=== PATIENT | female | born 2000 | race Caucasian/White ===

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

== ENCOUNTER 2020-03-12 15:55 | Outpatient (CLI) | payer OTHER, SELFPAY ==
--- NOTE | ~2020-03-12 | CT_ITS ---
EXAMINATION: CT brain wo con DATE: 03/12/2020 16:16 INDICATION: Chronic headache. TECHNIQUE: Computed tomography (CT) of the head was performed without intravenous contrast. The mA wa s adjusted according to patient size. Iterative reconstruction technique was employed. The dose-lengt h product was 605.33 mGy-cm. COMPARISON: None FINDINGS: There is no intracranial hemorrhage, acute infarction, or abnormal intracranial mass lesion . The ventricles are normal in size. The orbits are normal. The paranasal sinuses are clear. The mast oid air cells are normal. IMPRESSION: 1. Normal brain. Reviewed, dictated and finalized at location A. [employer] IMPRESSION: 1. Normal brain.
== END 2020-03-12 15:56 | disposition home or self-care (01) ==
LOC: ANHIMG 15:58
PROVIDERS: PCP Physician Assistant; Visit Provider Psychiatry & Neurology Neurology
DX: R51.9 Headache, unspecified (principal)
CPT/HCPCS: 70450

== ENCOUNTER 2020-03-30 19:29 | Emergency (ER) | payer OTHER, SELFPAY ==
--- NOTE | 2020-03-30 19:31 | ED.DIZZY ---
HPI - Dizziness General Chief Complaint: Nausea/Vomiting/Diarrhea Stated Complaint: dizzy and getting sick since yesterday Time Seen by Provider: 03/30/20 19:31 Source: patient Mode of arrival: ambulatory Limitations: no limitations History of Present Illness HPI Narrative: Patient is a 19-year-old female who presents for evaluation of nausea and vomiting. Patient states that she and her boyfriend got into an argument yesterday, she became nauseous following this and began to have episodes of vomiting. Nonbloody, nonbilious emesis. She denies any fever, cough, chest pain, abdominal pain or diarrhea. Patient states she has not been able to tolerate much oral intake today. She did touch base with her primary care physician's office who referred her to this facility. She denies any rhinorrhea, congestion or sore throat. No dysuria or hematuria. She states she had a negative test 2 days ago. She reports some mild dizziness but no difficulty with walking, vision changes, headache or neck pain. No dizziness currently. Patient denies any recent food indiscretions. No recent sick contacts. Related Data Home Medications Medication Instructions Recorded Confirmed escitalopram oxalate mg 09/20/19 mirtazapine mg 09/20/19 trazodone 09/20/19 09/20/19 Allergies Allergy/AdvReac Type Severity Reaction Status Date / Time No Known Allergies Allergy Verified 09/20/19 19:09 Review of Systems Review of Systems: Narrative: CONSTITUTIONAL: Denies fever, chills, or sweats. EYES: Denies visual changes, redness, or discharge. ENT: Denies rhinorrhea, congestion, sore throat, or otalgia. CARDIOVASCULAR: Denies chest pain, palpitations, or edema. RESPIRATORY: Denies cough or dyspnea. GASTROINTESTINAL: Denies abdominal pain, reports nausea and vomiting, denies diarrhea GENITOURINARY: Mild frequency, no dysuria or hematuria. SKIN: Denies rash or itching. MUSCULOSKELETAL: Denies back pain, joint pain, or myalgia. NEUROLOGIC: Denies headache, numbness, or weakness. Reports dizziness that is intermittent, none currently PSYCHIATRIC: Reports mild history of anxiety and depression PMFSH Past Medical History Medical History Anxiety Migraines Uses control Surgical History Surgical History No significant past surgical history Family History Family History (Updated 11/22/19 @ 15:02 by Joseph Dunlap RN) Father Colon cancer Diabetes mellitus High cholesterol Crohn's colitis Gum disease Grandparent History of blood clots Diabetes mellitus High cholesterol Heart disease Congenital disease of nervous system Hypertension Gum disease Grandparent History of blood clots High cholesterol Heart disease FH: seizures Hypertension Other Congenital disease of nervous system Gum disease Social History Social History Smoking status: Former smoker Second hand tobacco smoke exposure: No Substance use: never Gender identity (if verbalized by the patient): Female Spiritual care concerns: No Exam Narrative: Exam Narrative: GENERAL: Awake, alert, conversant HEAD: Normocephalic, atraumatic. EYES: PERRLA and EOMI. ENT: Nares clear, no rhinorrhea or epistaxis. Mucous membranes moist. NECK: Supple. CHEST: No respiratory distress, breathing even and non labored HEART: Regular rate, sinus rhythm ABDOMEN:Non distended, non tender in all 4 quadrants, no rebound, nonrigid, no guarding EXTREMITIES: Normal range of motion. No edema. SKIN: Warm, dry, no rash. NEURO:No focal deficits. Alert and oriented x3. Pt ambulatory with a narrow based, steady gait, no ataxia. Strength 5 out of 5 in bilateral upper and lower extremities. Course Vital Signs Vital signs: Vital Signs Pulse Rate 99 03/30/20 19:45 Respiratory Rate 20 03/30/20 19:45 Blood Pressure 144/78 H 03/30/20 19:45 Pulse Oxim
[2020-03-30 19:45] VITALS: BP 144/78; PULSE 99; RESP 20; O2SAT 96
[2020-03-30 19:53] LABS: Basophils Percent Auto 0.2 % (0.2-1.2); Eosinophils Absolute Auto 0.1 K/mm3 (0-0.3); Eosinophils Percent Auto 1.1 % (0-4.4); Hematocrit 44.6 % (37.0-47.0); Hemoglobin 14.2 g/dL (12.0-15.0); Immature Granulocyte Absolute 0.03 K/mm3 (0.00-0.031); Immature Granulocyte Percent A 0.3 % (0-0.5); Lymphocytes Percent Auto 18.3 % (18.3-44.2); Mean Corpuscular HGB Conc 31.8 g/dl (32-36); Mean Corpuscular Hemoglobin 26.2 pg (26-34); Mean Corpuscular Volume 82.3 fl (80-100); Mean Platelet Volume 9.9 fl (7.4-10.4); Monocytes Absolute Auto 0.7 K/mm3 (0.1-0.6); Monocytes Percent Auto 5.9 % (2.6-8.5); Neutrophils Absolute Auto 8.5 K/mm3 (1.3-6.7); Neutrophils Percent Auto 74.2 % (45.5-73.1); Platelet Count Result 343 k/mm3 (150-375); Red Blood Count 5.42 M/mm3 (4.2-5.4); Red Cell Distribution Width 14.8 % (11.5-14.5); White Blood Count 11.5 K/mm3 (4.5-10.0)
[2020-03-30] MEDS: SODIUM CHLORIDE 0.9% IV 1,000 ML 999 ML IV CONT (20:04)
[2020-03-30 20:07] LABS: Alanine Aminotransferase 15 U/L (4-35); Albumin Level 4.7 g/dL (3.7-5.6); Alkaline Phosphatase 109 U/L (45-116); Anion Gap 11 mmol/L (8-16); Aspartate Amino Transferase 30 U/L (14-36); Bilirubin,Total 0.6 mg/dL (0.2-1.3); Blood Urea Nitrogen 11 mg/dL (8-21); Calcium 9.5 mg/dL (8.9-10.7); Carbon Dioxide 22 mmol/L (22-30); Chloride 104 mmol/L (98-107); Estimated CRCL calculation 143 ml/min; Estimated Glomerular Filt Rate > 60; Glucose 94 mg/dL (65-105); Lipase 19 U/L (23-300); Potassium 4.3 mmol/L (3.4-5.0); Sodium 137 mmol/L (134-143)
[2020-03-30] MEDS: FAMOTIDINE 20 MG/2 ML VIAL IV PUSH (20:07)
[2020-03-30] MEDS: ONDANSETRON INJ 4 MG/2 ML VIAL IV PUSH (20:07)
[2020-03-30 20:19] LABS: Add Urine Microscopic? YES; Appearance Urine Cloudy (Clear); Bacteria Urine 1+ /hpf; Bilirubin Urine Negative (Negative); Blood Urine Negative (Negative); Color Urine Yellow (Yellow); Glucose Urine UA Negative (Negative); Ketones Urine Negative (Negative); Leukocyte Esterase Ur 1+ LEU/UL (Negative); Mucus Urine Heavy /lpf; Nitrate Urine Positive (Negative); Protein Urine 1+ mg/dL (Negative); RBC Urine 0-2 /hpf (0-2); Squamous Epithelial Cell Urine Many /hpf (Few); Urobilinogen Urine Negative mg/dL (<2.0)
[2020-03-30 20:22] LABS: Specific Grav Ur 1.032 (1.001-1.035)
--- NOTE | 2020-03-30 20:41 | ECG_ITS ---
Measurements Intervals [place] Rate: 75 P: 9 NE: 131 QRS: 5 QRSD: 116 T: 9 QT: 388 QTc: 435 Interpretive Statements SINUS RHYTHM BORDERLINE T WAVE ABNORMALITY- INFERIOR LEADS BORDERLINE ECG Electronically Signed On 03-31-2020 7:28:37 BACK HOE MACHINE OPERATOR by Tejas Ocasio D.O.
[2020-03-30 20:55] VITALS: BP 138/72; PULSE 88; RESP 16; O2SAT 99
--- NOTE | 2020-04-22 13:58 | PC.NURSE ---
LATE ENTRY This note is being entered to document information to the patient's record. The following information was omitted on [03/30/20], by [Dorothea Renee]. IV Fluid NS stop time 2099.
--- NOTE | 2020-04-23 10:51 | PC.NURSE ---
LATE ENTRY This note is being entered to document information to the patient's record. The following information was omitted on [03/30/20], by [Dorothea Renee]. NS stop time is 2100
== END 2020-03-30 20:57 | disposition home or self-care (01) ==
PROVIDERS: Emergency Provider Emergency Medicine; PCP Physician Assistant
DX: N30.00 Acute cystitis without hematuria (principal); E86.0 Dehydration; F41.9 Anxiety disorder, unspecified; Z87.891 Personal history of nicotine dependence
CPT/HCPCS: 36415; 80053; 81001; 81025; 83690; 85025; 87077; 87086; 87088; 87186; 93005; 96361; 96374; 96375; 99284; J0131; J2405; J7030

== ENCOUNTER 2020-04-07 10:09 | Outpatient (CLI) | payer OTHER, SELFPAY ==
--- NOTE | 2020-04-07 12:00 | NEURO_ITS ---
Impression: # Complains of pain and numbness of legs. # Normal nerve conduction study including F-waves. # Normal needle/EMG exam. # Clinical correlation recommended; problem could be related to small fiber neuropathy. Nerve Conduction Studies Anti Sensory Summary Table Stim Site NR Peak (ms) P-T Amp (?V) Site1 Site2 Delta-P (ms) Dist (cm) Don (m/s) Left Sup Fibular Anti Sensory (Ant Lat Mall) 14 cm 2.9 16.2 14 cm Ant Lat Mall 2.9 16.0 55 Right Sup Fibular Anti Sensory (Ant Lat Mall) 14 cm 3.0 5.0 14 cm Ant Lat Mall 3.0 16.0 53 Left Sural Anti Sensory (Lat Mall) Calf 3.9 11.6 Calf Lat Mall 3.9 16.0 41 Right Sural Anti Sensory (Lat Mall) Calf 3.6 11.2 Calf Lat Mall 3.6 16.0 44 Motor Summary Table Stim Site NR Onset (ms) O-P Amp (mV) Site1 Site2 Delta-0 (ms) Dist (cm) Don (m/s) Left Peroneal Motor (Vastus Med) Ankle 4.2 0.8 Popit Ankle 7.0 39.0 56 Popit 11.2 1.1 Right Peroneal Motor (Vastus Med) Ankle 3.8 1.6 Popit Ankle 6.7 37.0 55 Popit 10.5 1.5 Left Tibial Motor (Abd Atkins Brev) Ankle 3.7 6.6 Knee Ankle 7.7 40.0 52 Knee 11.4 4.1 Right Tibial Motor (Abd Atkins Brev) Ankle 3.9 9.2 Knee Ankle 8.5 41.0 48 Knee 12.4 2.9 F Wave Studies NR F-Lat (ms) L-R F-Lat (ms) Left Peroneal (Mrkrs) (EDB) 49.47 0.70 Right Peroneal (Mrkrs) (EDB) 50.18 0.70 Left Tibial (Mrkrs) (Abd Hallucis) 49.42 0.28 Right Tibial (Mrkrs) (Abd Hallucis) 49.70 0.28 EMG Side Muscle Nerve Root Ins Act Fibs Amp Dur Recrt Comment Right AntTibialis Dp Br Fibular L4-5 Nml Nml Nml Nml Nml Right Gastroc Tibial S1-2 Nml Nml Nml Nml Nml Right Fibularis Long Sup Br Fibular L5-S1 Nml Nml Nml Nml Nml Right Flex Dig Long Tibial L5-S2 Nml Nml Nml Nml Nml Right Ext Dig Brev Dp Br Fibular L5, S1 Nml Nml Nml Nml Nml Left AntTibialis Dp Br Fibular L4-5 Nml Nml Nml Nml Nml Left Gastroc Tibial S1-2 Nml Nml Nml Nml Nml Left Fibularis Long Sup Br Fibular L5-S1 Nml Nml Nml Nml Nml Left Flex Dig Long Tibial L5-S2 Nml Nml Nml Nml Nml Left Ext Dig Brev Dp Br Fibular L5, S1 Nml Nml Nml Nml Nml MTDD
== END 2020-04-07 10:10 | disposition home or self-care (01) ==
LOC: ANHNEURO 10:10
PROVIDERS: PCP Physician Assistant; Visit Provider Psychiatry & Neurology Neurology
DX: G62.9 Polyneuropathy, unspecified (principal)
CPT/HCPCS: 95886; 95910

== ENCOUNTER 2020-04-10 01:20 | Outpatient (CLI) | payer OTHER, SELFPAY ==
[2020-04-10 20:08] LABS: SARS-CoV-2 RNA PCR Negative
== END 2020-04-10 01:21 | disposition home or self-care (01) ==
LOC: ANHCOVIDDT 01:20
PROVIDERS: PCP Physician Assistant; Visit Provider Plastic Surgery
DX: Z01.812 Encounter for preprocedural laboratory examination (principal); Z20.822 Contact with and (suspected) exposure to COVID-19
CPT/HCPCS: C9803; U0003

== ENCOUNTER 2020-04-14 00:30 | Day surgery (SDC) | payer OTHER, SELFPAY ==
[2020-04-05 16:58] VITALS: BMI 36.6
[2020-04-14 06:05] VITALS: BP 121/69; PULSE 101; RESP 20; TEMP 36.5; O2SAT 100
[2020-04-14] MEDS: LACTATED RINGERS 1,000 ML 30 ML IV CONT (06:26)
--- NOTE | 2020-04-14 07:06 | WPDANESEPPF ---
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 Patient Data Age: 19 Gender: F Height: 5 ft 5 in Weight: 98.4 kg Last Vital Signs Temp 97.7 F 04/14/20 06:05 Pulse 101 H 04/14/20 06:05 Resp 20 04/14/20 06:05 BP 121/69 04/14/20 06:05 Pulse Ox 100 04/14/20 06:05 Allergies Allergy/AdvReac Type Severity Reaction Status Date / Time No Known Allergies Allergy Verified 04/14/20 06:46 Home Medications Medication Instructions Recorded Confirmed Type escitalopram oxalate 20 mg PO HS 09/20/19 04/14/20 History mirtazapine 15 mg PO HS 09/20/19 04/14/20 History gabapentin 300 mg PO TID 04/05/20 04/14/20 History levonorgestrel-ethinyl estrad 0.1 - 20 tablet PO DAILY 04/05/20 04/14/20 History [Aviane] naproxen 500 mg PO DAILY 04/05/20 04/05/20 History Laboratory Tests 04/14/20 06:25 Beta HCG, Quant Pending Patient hx anesthesia problems: none Family hx anesthesia problems: none PMFSH Past Medical History Medical History Anxiety Bipolar 1 disorder Migraines Uses control Surgical History Surgical History No significant past surgical history Family History Family History (Updated 02/28/19 @ 15:02 by Joseph Dunlap RN) Father Colon cancer Diabetes mellitus High cholesterol Crohn's colitis Gum disease Grandparent History of blood clots Diabetes mellitus High cholesterol Heart disease Congenital disease of nervous system Hypertension Gum disease Grandparent History of blood clots High cholesterol Heart disease FH: seizures Hypertension Other Congenital disease of nervous system Gum disease Social History Social History Years smoked: 3 Smoking status: Light tobacco smoker Second hand tobacco smoke exposure: No Additional smoking assessment comments: 1 CIGARETTE/WEEK Substance use: never Gender identity (if verbalized by the patient): Female Spiritual care concerns: No Anes - Eval Final PreProcedure Day of Procedure 04/14/20 07:06 Patient weight: obese Heart: regular rate and rhythm Lungs: clear to auscultation Airway: Mallampati scale class II Neurological: alert and oriented Last oral intake: >/= 8 hours ASA classification: II Emergent: no Anesthetic plan: proceed Anesthesia type and monitoring: general GIVS and standard monitoring Informed Consent: The patient's anesthetic plan and its attendant risks and benefits were discussed with the patient/family/POA. Questions were solicited and answers provided to the satisfaction of the patient/family/POA.
[2020-04-14 07:08] LABS: Beta HCG Quantitative < 2.39 mIU/ML
--- NOTE | 2020-04-14 07:11 | WPDHPUPDATE1 ---
History and Physical Update Update Date/Time: 04/14/20 07:11 History and Physical has been reviewed, including an updated exam of the patient. There are NO changes in the patient's condition. Risks, benefits, and alternatives have been discussed and questions answered. Patient agrees to proceed with procedure.
[2020-04-14] MEDS: BACITRACIN OINTMENT 15 GM TUBE 1 APPLIC TOPICAL (07:54)
[2020-04-14] MEDS: LIDO 1%/EPINEPHRINE 1:100,000 50 ML VIAL INFILTRATE (07:55)
[2020-04-14 08:03] VITALS: BP 141/99; PULSE 99; RESP 14; O2SAT 97
--- NOTE | 2020-04-14 08:03 | PM.OP ---
Procedure Note - Brief Procedure Note - Brief Date of procedure: 04/14/20 Pre-op diagnosis: recurrent right volar wrist ganglion cyst Post-op diagnosis: same Procedure performed: Excision of right volar wrist ganglion cyst. Anesthesia: MAC Surgeon: Bryan Rivas MD Estimated blood loss (mL): 0 Tourniquet time (min): 10 Drains: No Packing: No Pathology: none sent Complications: No immediate complications Condition: stable Disposition: same day
--- NOTE | 2020-04-14 08:04 | PM.PROC ---
Procedure Note - Detailed Date of procedure: 04/14/20 Pre-op diagnosis: recurrent right volar wrist ganglion cyst Post-op diagnosis: same Procedure performed: Excision of recurrent right volar wrist ganglion cyst. Description of procedure: The patient presents with a recurrence right volar wrist ganglion cyst. This again remains most prominent directly over the flexor carpi radialis at the distal palmar crease. We had discussed a wider area of excision thinking that the mass did track more radially and she was prepared for that type excision. The site was marked in preop. She was taken to the operating room placed supine on the operating table. A time-out was held and confirmed. She was given IV sedation. The extremity was prepped and draped in usual fashion. The site was carefully examined and marked for excision. We were not able to detect a more radial or proximal volar wrist ganglion cyst today. The site directly over the flexor carpi radialis was quite prominent and firm. The diagonal incision was made 1st after inflation of the tourniquet to 250 mmHg and placement of 1% lidocaine with epinephrine. Dissection was carried into the subcutaneous tissue. No fluctuant ganglion was identified there was a very firm silvery mass on the flexor carpi radialis sheath and this was carefully dissected it did penetrate into the radiocarpal joint and we followed that as far as possible removing it at its base. This small opening through the deep fascia was oversewn with 4-0 Monocryl suture. The wound was then closed with subcutaneous 4-0 Monocryl. An intradermal 4-0 Monocryl to close the skin. Tolerated well the tourniquet believe she is discharged from the operating room stable condition she will have a prescription for some hydrocodone Surgeon: Bryan Rivas MD
[2020-04-14 08:30] VITALS: BP 108/55; PULSE 92; RESP 20
[2020-04-14 09:00] VITALS: BP 92/60; PULSE 74; RESP 20
== END 2020-04-14 09:34 | disposition home or self-care (01) ==
PROVIDERS: Anesthesiology; PCP Physician Assistant; Visit Provider Plastic Surgery
PROC: (CPT 25112; principal; 2020-04-14 07:30)
DX: M67.431 Ganglion, right wrist (principal); F31.9 Bipolar disorder, unspecified; F41.9 Anxiety disorder, unspecified; Z72.0 Tobacco use
CPT/HCPCS: 25112; 36415; 84702; A9270; J2250; J2405; J2704; J3010; J7120

== ENCOUNTER 2020-10-31 17:21 | Emergency (ER) | payer OTHER, SELFPAY ==
--- NOTE | ~2020-10-31 | XR_ITS ---
EXAMINATION: XR chest 1V portable EXAM DATE: 10/31/2020 20:18 INDICATION: Cough. TECHNIQUE: Portable AP frontal chest x-ray was obtained. Comparison is made to prior examination from 06/25/2019. FINDINGS: There is retrocardiac airspace disease, probably pneumonia. There is no pneumothorax [place]. There are no pleural effusions. There are no osseous abnormalities identified. IMPRESSION: Retrocardiac airspace disease probably pneumonia. Reviewed, dictated and finalized at location A.
[2020-10-31 17:41] VITALS: BP 121/69; PULSE 97; RESP 20; TEMP 36.5; O2SAT 100
--- NOTE | 2020-10-31 20:53 | ED.GENADULT ---
HPI - General Adult General Chief complaint: Unspecified Stated complaint: GETTING SICK, VOICE IS GOING Time Seen by Provider: 10/31/20 19:58 Source: patient Mode of arrival: ambulatory Limitations: no limitations History of Present Illness HPI narrative: This is a 20-year-old female that presents to the emergency department for cold symptoms x3 days. Reports congestion, headache, and cough. Reports several coworkers have been diagnosed with Covid. She did not receive the Covid vaccination. Denies fever, chest pain, shortness of breath. Related Data Home Medications Medication Instructions Recorded Confirmed escitalopram oxalate 20 mg PO HS 09/20/19 04/14/20 mirtazapine 15 mg PO HS 09/20/19 04/14/20 gabapentin 300 mg PO TID 04/05/20 04/14/20 levonorgestrel-ethinyl estrad 0.1 - 20 tablet PO DAILY 04/05/20 04/14/20 [Aviane] naproxen 500 mg PO DAILY 04/05/20 04/05/20 Allergies Allergy/AdvReac Type Severity Reaction Status Date / Time No Known Allergies Allergy Verified 04/14/20 06:46 Review of Systems Review of Systems: Narrative: CONSTITUTIONAL: Denies fever ENT: Reports rhinorrhea, congestion, sore throat CARDIOVASCULAR: Denies chest pain RESPIRATORY: Reports cough. Denies dyspnea. All systems reviewed & are unremarkable except as noted in HPI and below PMFSH Past Medical History Medical History Anxiety Bipolar 1 disorder Migraines Uses control Surgical History Surgical History No significant past surgical history Family History Family History (Updated 02/28/19 @ 15:02 by Joseph Dunlap RN) Father Colon cancer Diabetes mellitus High cholesterol Crohn's colitis Gum disease Grandparent History of blood clots Diabetes mellitus High cholesterol Heart disease Congenital disease of nervous system Hypertension Gum disease Grandparent History of blood clots High cholesterol Heart disease FH: seizures Hypertension Other Congenital disease of nervous system Gum disease Social History Social History Years smoked: 3 Smoking status: Light tobacco smoker Second hand tobacco smoke exposure: No Additional smoking assessment comments: 1 CIGARETTE/WEEK Substance use: never Gender identity (if verbalized by the patient): Female Spiritual care concerns: No Exam Narrative: Exam Narrative: GENERAL: Well-appearing, well-nourished, and in no acute distress. HEAD: Normocephalic, atraumatic. EYES: EOMI. ENT: Nares clear, no rhinorrhea or epistaxis. Mucous membranes moist. Oropharynx without tonsillar hypertrophy exudate or other lesions. Bilateral TMs pearly [place] non-bulging NECK: Supple. No adenopathy or masses. CHEST: Clear to auscultation. No respiratory distress. No wheezes rales or rhonchi HEART: Regular rate and rhythm. No murmur heard. Normal peripheral pulses. EXTREMITIES: Normal range of motion. No edema. SKIN: Warm, dry, no rash. NEURO: No focal deficits. Alert and oriented x3. PSYCH: Normal mood and affect Course Vital Signs Vital signs: Vital Signs Temperature 97.7 F 10/31/20 17:41 Pulse Rate 97 10/31/20 17:41 Respiratory Rate 20 10/31/20 17:41 Blood Pressure 121/69 10/31/20 17:41 Pulse Oximetry 100 10/31/20 17:41 Temperature 97.7 F 10/31/20 17:41 Pulse Rate 97 10/31/20 17:41 Respiratory Rate 20 10/31/20 17:41 Blood Pressure 121/69 10/31/20 17:41 Pulse Oximetry 100 10/31/20 17:41 Medical Decision Making MDM Narrative Medical decision making narrative: Patient presents to the ER for cold symptoms present x3 days. Reports several coworkers that had been diagnosed with coronavirus. She is afebrile and nontoxic-appearing. Vitals are stable. Oxygen saturation has remained normal on room air. Chest x-ray does show retrocardiac airspace disease, probably pneumonia. SARS-CoV-2 was sent. Enrique
[2020-10-31 21:32] VITALS: BP 110/72; PULSE 91; RESP 18; TEMP 36.6; O2SAT 99
[2020-11-02 15:38] LABS: SARS-CoV-2 RNA PCR Positive
== END 2020-10-31 21:32 | disposition home or self-care (01) ==
PROVIDERS: Physician Assistant; Emergency Provider Emergency Medicine; PCP Physician Assistant
DX: U07.1 COVID-19 (principal); J12.82 Pneumonia due to coronavirus disease 2019; F41.9 Anxiety disorder, unspecified; F31.9 Bipolar disorder, unspecified; F17.210 Nicotine dependence, cigarettes, uncomplicated
CPT/HCPCS: 71045; 99283; C9803; U0003; U0005

== ENCOUNTER 2021-02-27 02:36 | Emergency (ER) | payer OTHER, SELFPAY ==
--- NOTE | ~2021-02-27 | US_ITS ---
EXAMINATION: US OB <=14 wk fetus w TV EXAM DATE: 02/27/2021 05:04 INDICATION: Pelvic pain, . Clinical concern for ectopic. 1st trimester. TECHNIQUE: Pelvic obstetrical transabdominal and transvaginal sonogram was performed by a technologcee chapman. There are multiple grayscale and Doppler images available for interpretation. There are no boaz ier studies of this gestation for comparison. FINDINGS: Uterus measures 8.0 x 6.6 x 5.3 cm. There is intrauterine gestation sac. pole with heart rate confirmed at 115 beats per minute. The 7 mm crown-rump length corresponds to estimated ge stational age of 6 weeks 4 days. Yolk sac is identified. There is a small subchorionic hemorrhage measuring 13 mm diameter by 6 mm in thickness. There is morphologically normal right ovary. The lef t ovary not identified. IMPRESSION: Early live intrauterine with small subchorionic metallic. Reviewed, dictated and finalized at location A. [employer] IMPRESSION: Early live intrauterine with small subchorionic metallic .
[2021-02-27 02:39] VITALS: BP 121/69; PULSE 98; RESP 17; TEMP 36.1; O2SAT 100
[2021-02-27] MEDS: SODIUM CHLORIDE 0.9% IV 500 ML 999 ML IV CONT (04:04)
[2021-02-27 04:12] LABS: Basophils Percent Auto 0.2 % (0.2-1.2); Eosinophils Absolute Auto 0.3 K/mm3 (0-0.3); Eosinophils Percent Auto 2.4 % (0-4.4); Hematocrit 41.9 % (37.0-47.0); Hemoglobin 13.7 g/dL (12.0-15.0); Immature Granulocyte Absolute 0.06 K/mm3 (0.00-0.031); Immature Granulocyte Percent A 0.5 % (0-0.5); Lymphocytes Absolute Auto 2.29 K/mm3 (0.9-3.2); Lymphocytes Percent Auto 17.8 % (18.3-44.2); Mean Corpuscular HGB Conc 32.7 g/dl (32-36); Mean Corpuscular Hemoglobin 28.8 pg (26-34); Mean Platelet Volume 9.4 fl (7.4-10.4); Monocytes Absolute Auto 0.8 K/mm3 (0.1-0.6); Monocytes Percent Auto 5.9 % (2.6-8.5); Neutrophils Absolute Auto 9.4 K/mm3 (1.3-6.7); Neutrophils Percent Auto 73.2 % (45.5-73.1); Platelet Count Result 316 k/mm3 (150-375); Red Blood Count 4.76 M/mm3 (4.2-5.4); Red Cell Distribution Width 13.4 % (11.5-14.5); White Blood Count 12.8 K/mm3 (4.5-10.0)
[2021-02-27 04:21] LABS: Alanine Aminotransferase 12 U/L (4-35); Albumin Level 4.6 g/dL (3.5-5.1); Alkaline Phosphatase 85 U/L (38-126); Anion Gap 8 mmol/L (8-16); Aspartate Amino Transferase 20 U/L (14-36); Bilirubin,Total 0.2 mg/dL (0.2-1.3); Blood Urea Nitrogen 10 mg/dL (7-17); Calcium 9.7 mg/dL (8.4-10.2); Carbon Dioxide 28 mmol/L (22-30); Chloride 101 mmol/L (98-107); Estimated Glomerular Filt Rate > 60; Glucose 101 mg/dL (65-110); Potassium 3.9 mmol/L (3.4-5.0); Sodium 137 mmol/L (137-145)
[2021-02-27 06:07] VITALS: BP 122/67; PULSE 97; RESP 16; O2SAT 99
[2021-02-27 06:12] LABS: Add Urine Microscopic? NO; Appearance Urine Clear (Clear); Bilirubin Urine Negative (Negative); Blood Urine Negative (Negative); Color Urine Yellow (Yellow); Glucose Urine UA Negative (Negative); Ketones Urine Negative (Negative); Leukocyte Esterase Ur Negative LEU/UL (Negative); Nitrate Urine Negative (Negative); Protein Urine Negative (Negative); Specific Grav Ur 1.023 (1.001-1.035); Urobilinogen Urine Negative mg/dL (<2.0)
--- NOTE | 2021-02-27 07:11 | ED.FEMALEGU ---
HPI - Female Genitourinary General Chief complaint: Vaginal Bleeding <Brday Orourke MD - Last Filed: 02/27/21 07:16> Stated complaint: vaginal bleeding/ 7 weeks <Brady Orourke MD - Last Filed: 02/27/21 07:16> Time Seen by Provider: 02/27/21 04:20 <Brady Orourke MD - Last Filed: 02/27/21 07:16> Source: patient <Brady Orourke MD - Last Filed: 02/27/21 07:16> History of Present Illness HPI Narrative: 1-year-old female presents with vaginal bleeding. She is G8, P1 approximately 7 weeks by LMP. Reports she started bleeding last night with it was associated with lower abdominal cramping. She reports the bleeding is scant she has a history of early miscarriages was concerned so came to the ER for evaluation. Denies any trauma, nausea, vomiting, urinary symptoms. <Brady Orourke MD - Last Filed: 02/27/21 07:16> Related Data Home medications: Home Medications Medication Instructions Recorded Confirmed escitalopram oxalate 20 mg PO HS 09/20/19 04/14/20 mirtazapine 15 mg PO HS 09/20/19 04/14/20 gabapentin 300 mg PO TID 04/05/20 04/14/20 levonorgestrel-ethinyl estrad 0.1 - 20 tablet PO DAILY 04/05/20 04/14/20 [Aviane] naproxen 500 mg PO DAILY 04/05/20 04/05/20 <Brady Orourke MD - Last Filed: 02/27/21 07:16> Allergies/Adverse reactions: Allergies Allergy/AdvReac Type Severity Reaction Status Date / Time No Known Allergies Allergy Verified 02/27/21 02:41 <Brady Orourke MD - Last Filed: 02/27/21 07:16> Review of Systems Review of Systems: CONSTITUTIONAL: Denies fever, chills, or sweats. EYES: Denies visual changes, redness, or discharge. ENT: Denies rhinorrhea, congestion, sore throat, or otalgia. CARDIOVASCULAR: Denies chest pain, palpitations, or edema. RESPIRATORY: Denies cough or dyspnea. GASTROINTESTINAL: Denies abdominal pain, nausea, vomiting, or diarrhea. GENITOURINARY: Denies dysuria or hematuria. SKIN: Denies rash or itching. MUSCULOSKELETAL: Denies back pain, joint pain, or myalgia. NEUROLOGIC: Denies headache, numbness, dizziness, or weakness. PSYCHIATRIC: Denies anxiety or depression. <Brady Orourke MD - Last Filed: 02/27/21 07:16> All systems reviewed & are unremarkable except as noted in HPI and below <Brady Orourke MD - Last Filed: 02/27/21 07:16> PMFSH Past Medical History Medical History: Medical History Anxiety Bipolar 1 disorder Migraines Uses control <Brady Orourke MD - Last Filed: 02/27/21 07:16> Surgical History Surgical History: Surgical History No significant past surgical history <Brady Orourke MD - Last Filed: 02/27/21 07:16> Family History Family History: Family History Father Colon cancer Diabetes mellitus High cholesterol Crohn's colitis Gum disease Grandparent History of blood clots Diabetes mellitus High cholesterol Heart disease Congenital disease of nervous system Hypertension Gum disease Grandparent History of blood clots High cholesterol Heart disease FH: seizures Hypertension Other Congenital disease of nervous system Gum disease <Brady Orourke MD - Last Filed: 02/27/21 07:16> Social History Social History: Social History Years smoked: 3 Smoking status: Light tobacco smoker Second hand tobacco smoke exposure: No Additional smoking assessment comments: 1 CIGARETTE/WEEK Substance use: never Gender identity (if verbalized by the patient): Female Spiritual care concerns: No <Brady Orourke MD - Last Filed: 02/27/21 07:16> Exam Narrative: GENERAL: Well-appearing, well-nourished, and in no acute distress. HEAD: Normocephalic, atraumatic. EYES: PERRLA and EOMI. ENT: Nares clear, no rhinorrhea or epistaxis. Mucous membranes moist.
== END 2021-02-27 08:30 | disposition home or self-care (01) ==
PROVIDERS: Emergency Medicine; Emergency Provider Emergency Medicine; PCP Physician Assistant
DX: O20.0 Threatened abortion (principal); O99.341 Other mental disorders complicating pregnancy, first trimester; F41.9 Anxiety disorder, unspecified; F31.9 Bipolar disorder, unspecified; O99.331 Smoking (tobacco) complicating pregnancy, first trimester; F17.210 Nicotine dependence, cigarettes, uncomplicated; Z3A.01 Less than 8 weeks gestation of pregnancy
CPT/HCPCS: 36415; 76801; 76817; 80053; 81003; 84702; 85025; 85461; 96360; 99284; J7040

== ENCOUNTER 2021-04-02 20:41 | Emergency (ER) | payer OTHER, SELFPAY ==
[2021-04-02 21:03] VITALS: BP 137/70; PULSE 97; RESP 15; TEMP 36.3; O2SAT 100
--- NOTE | 2021-04-02 21:40 | ED.WOUNDLAC ---
HPI - Wound/Laceration General Chief Complaint: Wound/Laceration Stated Complaint: left thumb lac Time Seen by Provider: 04/02/21 21:13 History of Present Illness HPI narrative: Patient is a 20-year-old female who presents ER with thumb laceration. Occurred just prior to arrival. She was opening a can when she cut her left thumb. 1.5 cm. Superficial. Tetanus up-to-date. No numbness or tingling. Has throbbing discomfort. Related Data Home Medications Medication Instructions Recorded Confirmed escitalopram oxalate 20 mg PO HS 09/20/19 04/14/20 mirtazapine 15 mg PO HS 09/20/19 04/14/20 gabapentin 300 mg PO TID 04/05/20 04/14/20 levonorgestrel-ethinyl estrad 0.1 - 20 tablet PO DAILY 04/05/20 04/14/20 [Aviane] naproxen 500 mg PO DAILY 04/05/20 04/05/20 Allergies Allergy/AdvReac Type Severity Reaction Status Date / Time No Known Allergies Allergy Verified 04/02/21 21:07 Review of Systems Integumentary/Breasts: Skin/Breast: Denies pruritus and Denies erythema Comments: Skin laceration Neurologic: Denies focal weakness and Denies numbness PMFSH Past Medical History Medical History Anxiety Bipolar 1 disorder Migraines Uses control Surgical History Surgical History No significant past surgical history Family History Family History Father Colon cancer Diabetes mellitus High cholesterol Crohn's colitis Gum disease Grandparent History of blood clots Diabetes mellitus High cholesterol Heart disease Congenital disease of nervous system Hypertension Gum disease Grandparent History of blood clots High cholesterol Heart disease FH: seizures Hypertension Other Congenital disease of nervous system Gum disease Social History Social History Years smoked: 3 Smoking status: Light tobacco smoker Second hand tobacco smoke exposure: No Additional smoking assessment comments: 1 CIGARETTE/WEEK Substance use: never Gender identity (if verbalized by the patient): Female Spiritual care concerns: No Exam Narrative: GENERAL: Well-appearing, well-nourished, and in no acute distress. HEAD: Normocephalic, atraumatic. EXTREMITIES: Normal range of motion. Normal sensation in the left hand. SKIN: Warm, dry. 1.5 cm superficial laceration to the left thumb. Distal phalanx. NEURO: No focal deficits. Alert and oriented x3. PSYCH: Normal mood and affect. Course Vital Signs Vital signs: Vital Signs Temperature 97.3 F L 04/02/21 21:03 Pulse Rate 97 04/02/21 21:03 Respiratory Rate 15 04/02/21 21:03 Blood Pressure 137/70 04/02/21 21:03 Pulse Oximetry 100 04/02/21 21:03 Temperature 97.3 F L 04/02/21 21:03 Pulse Rate 97 04/02/21 21:03 Respiratory Rate 15 04/02/21 21:03 Blood Pressure 137/70 04/02/21 21:03 Pulse Oximetry 100 04/02/21 21:03 Procedures Laceration Laceration 1: Date: 04/02/21 Time: 21:43 Site: other (Thumb) Side (If applicable): left Size (cm): 1.5 Description: linear Depth: simple, single layer Pre-repair: irrigated ====== Skin Level ====== Skin layer closed with: dermabond ====== Subcutaneous Layer ====== ====== Muscle Layer ====== ====== Tendon Layer ====== Discharge Plan Discharge Clinical Impression: Laceration Patient Disposition: Home, Self-Care Condition: Stable Instructions: Laceration (ED), Skin Adhesive Care (ED) Additional Instructions: Return the ER if you have fever over 100.4 ?F, your thumb is red/hot/swollen, you have pus draining from your thumb, or you have additional concerns. Prescriptions: No Action mirtazapine 15 mg tablet 15 mg PO HS RF: 0 escitalopram oxalate 20 mg tablet 20 mg PO HS RF: 0 levonorgestrel-ethinyl
== END 2021-04-02 22:14 | disposition home or self-care (01) ==
PROVIDERS: Emergency Provider Emergency Medicine; PCP Physician Assistant
DX: S61.012A Laceration without foreign body of left thumb without damage to nail, initial encounter (principal); F41.9 Anxiety disorder, unspecified; F31.9 Bipolar disorder, unspecified; F17.210 Nicotine dependence, cigarettes, uncomplicated; W26.8XXA Contact with other sharp object(s), not elsewhere classified, initial encounter
CPT/HCPCS: 12001; 99282

== ENCOUNTER 2021-08-05 14:35 | Observation (INO) | payer OTHER, SELFPAY ==
[2021-08-05] VITALS (10 sets, daily range): BP systolic 97–120; BP diastolic 52–70; PULSE 93–114; BMI 36.6
--- NOTE | 2021-08-05 16:24 | OBADM ---
This patient, Florence Piña, admitted to the OB room OB Post 116 for observation. Patient/family oriented to hospital policies and general routines including ID bracelet, bed and alarms, visiting hours, pain management, procedures, bathroom and other care routines, personal items, smoking policy, room service/diet, and visiting hours. Patient/Family are encouraged to report perceived risks to care and to ask questions if they do not understand what they are told or what they should do.
[2021-08-05 16:34] LABS: Add Urine Microscopic? YES; Appearance Urine Cloudy (Clear); Bacteria Urine Trace /hpf; Bilirubin Urine Negative (Negative); Blood Urine Negative (Negative); Color Urine Yellow (Yellow); Glucose Urine UA Negative (Negative); Ketones Urine Negative (Negative); Leukocyte Esterase Ur 3+ LEU/UL (Negative); Mucus Urine Rare /lpf; Nitrate Urine Negative (Negative); Protein Urine Negative (Negative); RBC Urine 0-2 /hpf (0-2); Specific Grav Ur 1.012 (1.001-1.035); Squamous Epithelial Cell Urine Few /hpf (Few); Urobilinogen Urine Negative mg/dL (<2.0); WBC Urine 0-3 /hpf
--- NOTE | 2021-08-09 13:53 | PM.OBTRLD ---
OB - Triage/Final Diagnosis Visit Information Reason for evaluation: threatened labor Comments/Additional reasons for admission: I have assessed the risk for this patient, Florence Piña, and determined that she would benefit from observation care. Evaluation Laboratory results: Laboratory Tests 08/05/21 16:03 Urine Color Yellow Urine Appearance Cloudy H Urine pH 7.0 Ur Specific [place] 1.012 Urine Protein Negative Urine Glucose (UA) Negative Urine Ketones Negative Ur Blood (Man) Negative Urine Nitrate Negative Urine Bilirubin Negative Urine Urobilinogen Negative Leukocyte Esterase Rfl 3+ H Urine RBC 0-2 Urine WBC 0-3 Ur Squamous Epith Cells Few Urine Bacteria Trace Hyaline Casts 1-2 Urine Mucus Rare
== END 2021-08-05 17:12 | disposition home or self-care (01) ==
PROVIDERS: Admitting Provider Obstetrics & Gynecology Gynecology; PCP Physician Assistant; Visit Provider Obstetrics & Gynecology Gynecology
DX: O47.03 False labor before 37 completed weeks of gestation, third trimester (principal); Z3A.29 29 weeks gestation of pregnancy
CPT/HCPCS: 81001; G0378; G0379

== ENCOUNTER 2021-09-05 18:35 | Observation (INO) | payer OTHER, SELFPAY ==
[2021-09-05 18:53] VITALS: BP 129/67; PULSE 104
[2021-09-05 19:04] VITALS: BMI 40.7
[2021-09-05 19:39] LABS: Appearance Urine Slightly Cloudy (Clear); Bilirubin Urine Negative (Negative); Blood Urine Negative (Negative); Color Urine Yellow (Yellow); Glucose Urine UA Negative (Negative); Ketones Urine Negative (Negative); Leukocyte Esterase Ur Negative LEU/UL (Negative); Nitrate Urine Negative (Negative); Protein Urine Negative (Negative); Specific Grav Ur 1.025 (1.001-1.035); pH Urine 6.5 (5.0-9.0)
[2021-09-05 19:54] LABS: Amorphous Sediment Urine Few; Bacteria Urine Trace /hpf; Mucus Urine Rare /lpf; Squamous Epithelial Cell Urine Occasional /hpf (Few)
[2021-09-05 19:57] LABS: Add Urine Microscopic? YES
--- NOTE | 2021-09-14 10:44 | PM.OBTRLD ---
OB - Triage/Final Diagnosis Visit Information Reason for evaluation: threatened labor Comments/Additional reasons for admission: I have assessed the risk for this patient, Florence Piña, and determined that she would benefit from observation care. Evaluation Laboratory results: Laboratory Tests 09/05/21 19:27 Urine Color Yellow Urine Appearance Slightly cloudy Urine pH 6.5 Ur Specific [place] 1.025 Urine Protein Negative Urine Glucose (UA) Negative Urine Ketones Negative Ur Blood (Man) Negative Urine Nitrate Negative Urine Bilirubin Negative Urine Urobilinogen 1.0 Leukocyte Esterase Rfl Negative Urine RBC 6-10 H Urine WBC 7-9 H Ur Squamous Epith Cells Occasional Amorphous Sediment Few H Urine Bacteria Trace Urine Mucus Rare
== END 2021-09-05 20:20 | disposition home or self-care (01) ==
PROVIDERS: Admitting Provider Obstetrics & Gynecology; PCP Physician Assistant; Visit Provider Obstetrics & Gynecology
DX: O47.03 False labor before 37 completed weeks of gestation, third trimester (principal); Z3A.34 34 weeks gestation of pregnancy
CPT/HCPCS: 81001; 87086; G0378; G0379

== ENCOUNTER 2021-10-12 05:37 | Inpatient (IN) | payer OTHER, SELFPAY ==
[2021-10-12] VITALS (141 sets, daily range): BP systolic 77–134; BP diastolic 41–84; PULSE 51–110; RESP 16–18; TEMP 36.1–36.7; O2SAT 79–100; BMI 39.9
--- NOTE | 2021-10-12 05:37 | LDADM ---
This patient, Florence Piña, was admitted to Labor/Delivery/Recovery 105 on 10/12/21 at 05:37. Plans for labor, pain management and were discussed with patient. Patient/family oriented to hospital policies and general routines including ID bracelet, bed and alarms, visiting hours, pain management, procedures, bathroom and other care routines, personal items, smoking policy, room service/diet and guest tray routines, security routines, and visiting hours. Patient/Family are encouraged to report perceived risks to care and to ask questions if they do not understand what they are told or what they should do. See OBIX for further documentation.
[2021-10-12 06:38] LABS: Basophils Percent Auto 0.3 % (0.2-1.2); Eosinophils Absolute Auto 0.2 K/mm3 (0-0.3); Eosinophils Percent Auto 2.5 % (0-4.4); Hematocrit 38.5 % (37.0-47.0); Hemoglobin 12.2 g/dL (12.0-15.0); Immature Granulocyte Absolute 0.05 K/mm3 (0.00-0.031); Immature Granulocyte Percent A 0.5 % (0-0.5); Lymphocytes Absolute Auto 1.75 K/mm3 (0.9-3.2); Lymphocytes Percent Auto 18.8 % (18.3-44.2); Mean Corpuscular HGB Conc 31.7 g/dl (32-36); Mean Corpuscular Hemoglobin 26.1 pg (26-34); Mean Corpuscular Volume 82.4 fl (80-100); Mean Platelet Volume 9.6 fl (7.4-10.4); Monocytes Absolute Auto 0.7 K/mm3 (0.1-0.6); Monocytes Percent Auto 7.4 % (2.6-8.5); Neutrophils Absolute Auto 6.6 K/mm3 (1.3-6.7); Neutrophils Percent Auto 70.5 % (45.5-73.1); Platelet Count Result 257 k/mm3 (150-375); Red Blood Count 4.67 M/mm3 (4.2-5.4); Red Cell Distribution Width 15.8 % (11.5-14.5); White Blood Count 9.3 K/mm3 (4.5-10.0)
[2021-10-12] MEDS: OXYTOCIN 30 UNITS/NS 500 ML 30 UNITS/500 ML BAG IV CONT (06:39)
[2021-10-12] MEDS: LACTATED RINGERS 1,000 ML 125 ML IV CONT ×3 (06:39→10:10)
--- NOTE | 2021-10-12 07:58 | WPDHPUPDATE1 ---
History and Physical Update Update Date/Time: 10/12/21 07:58 History and Physical has been reviewed, including an updated exam of the patient. There are NO changes in the patient's condition. Risks, benefits, and alternatives have been discussed and questions answered. Patient agrees to proceed with procedure.
--- NOTE | 2021-10-12 07:58 | WPDOBADMIT ---
Obstetrics - Admit Note Admission Note: record reviewed. No pertinent additions to the history and/or any subsequent changes in the physical findings that are not consistent with the expected course of the were found. Additions to the history and/or subsequent changes in the physical findings follow. None.
--- NOTE | 2021-10-12 08:05 | WPDANESEPPF ---
Anes - Initial Pre Proc Eval Date/Time: 10/12/21 08:05 Surgeon: Quincy Fuller MD Pre Op Diagnosis: Induction of Labor Patient Data Age: 21 Gender: F Height: 1.65 m Weight: 109 kg Last Vital Signs Temp 36.4 C 10/12/21 06:42 Pulse 89 10/12/21 08:01 Resp 18 10/12/21 06:42 BP 126/66 10/12/21 08:01 Allergies Allergy/AdvReac Type Severity Reaction Status Date / Time No Known Allergies Allergy Verified 10/04/21 14:19 Home Medications Medication Instructions Recorded Confirmed Type No Home Medications 10/04/21 10/12/21 History Laboratory Tests 10/12/21 10/12/21 10/12/21 06:24 06:24 06:24 WBC 9.3 K/mm3 K/mm3 (4.5-10.0) RBC 4.67 M/mm3 M/mm3 (4.2-5.4) Hgb 12.2 g/dL g/dL (12.0-15.0) Hct 38.5 % % (37.0-47.0) MCV 82.4 fl fl (80-100) MCH 26.1 pg pg (26-34) MCHC 31.7 g/dl L g/dl (32-36) RDW 15.8 % H % (11.5-14.5) Plt Count 257 k/mm3 k/mm3 (150-375) MPV 9.6 fl fl (7.4-10.4) Immature Gran % (Auto) 0.5 % % (0-0.5) Neut % (Auto) 70.5 % % (45.5-73.1) Lymph % (Auto) 18.8 % % (18.3-44.2) [place] % (Auto) 7.4 % % (2.6-8.5) Eos % (Auto) 2.5 % % (0-4.4) Baso % (Auto) 0.3 % % (0.2-1.2) Lymph # (Auto) 1.75 K/mm3 K/mm3 (0.9-3.2) [place] # (Auto) 0.7 K/mm3 H K/mm3 (0.1-0.6) Eos # (Auto) 0.2 K/mm3 K/mm3 (0-0.3) Baso # (Auto) 0.0 K/mm3 K/mm3 (0.0-0.1) Abs Immat Gran (auto) 0.05 K/mm3 H K/mm3 (0.00-0.031) Absolute Neuts (auto) 6.6 K/mm3 K/mm3 (1.3-6.7) Absolute Nucleated RBC 0.0 K/mm3 K/mm3 (0.0-0.012) Nucleated RBC % 0.0 % % (0.0-0.2) RPR Pending Blood Type O Positive Antibody Screen Negative Patient hx anesthesia problems: none Family hx anesthesia problems: none Results Review: All pre-operative results and documents have been reviewed as part of the pre-operative evaluation. [facility] Past Medical History Medical History Abnormal glucose tolerance in Anxiety Bipolar 1 disorder crippling depression no meds pt refused IBS (irritable bowel syndrome) Migraines Uses control Surgical History Surgical History (Updated 04/19/21 @ 11:54 by ROSELINE Vance) History of gynecological procedure (04/30/19) nexplanon insertion History of gynecological procedure (08/14/19) nexplanon removal in office History of gynecological procedure (03/27/19) suction D&C bleeding Hx of removal of cyst cyst removed from wrist No significant past surgical history Family History Family History (Updated 09/30/21 @ 13:49 by Minal Maldonado RN) Father Colon cancer Diabetes mellitus High cholesterol Gum disease Crohn's colitis Alcoholic cirrhosis of liver Grandparent History of blood clots Diabetes mellitus High cholesterol Heart disease Congenital disease of nervous system Gum disease Hypertension Grandparent History of blood clots High cholesterol Heart disease FH: seizures Hypertension Other Congenital disease of nervous system Gum disease Social History Social History (Updated 04/19/21 @ 11:56 by ROSELINE Vance) Years smoked: 3 Smoking status: Former smoker Second hand tobacco smoke exposure: No Additional smoking assessment comments: 1 CIGARETTE/WEEK Alcohol intake: never Substance use: never Gender identity (if verbalized by the patient): Female Sexual Orientation (if Verbalized by the Patient): Straight or Heterosexual Spiritual care concerns: No Anes - Eval Final PreProcedure Day of Procedure 10/12/21 08:05 Patient weight: obese Heart: regular rate and rhythm Lungs: clear to auscultation Airway: Mallampati scale class II Neurological: alert and oriented Last oral intake: >/= 8
[2021-10-12] MEDS: ONDANSETRON INJ 4 MG/2 ML VIAL IV PUSH (09:48)
[2021-10-12 12:54] LABS: Rapid Plasma Reagin Non-Reactive (NonReactive)
--- NOTE | 2021-10-12 13:41 | P.PCNOB_ITS ---
OB - Delivery Note Procedure Induction method: Per Pitocin Protocol Delivery monitor: External FHT and Internal Uterine Route of delivery: Episiotomy description: None Laceration Description: None Specimen: No Quantitative Blood Loss (ml): 300 Anesthesia type: Epidural Disposition: Floor Complications: None Narrative: patient prepped in usual manner For this procedure. Maternal expulsive efforts readily deliver the vertex, followed by the rest of the body. Cord was clamped and cut and the baby was passed off operative field. Placenta delivered spontaneously And the uterus was well contracted. Cervix vagina vulva inspected no lacerations or tears. at this point procedure was considered terminated with immediate postoperative condition of mother and baby both excellent. [place] Baby Weeks of gestation at delivery: 39 gender: Female Weight (pounds): 6 Weight (ounces): 11 presentation: vertex Placenta delivery description: Spontaneous Cord Vessel Description: 3 Vessels score one minute: 8 score five minutes: 9 AMG Delivery Billing Delivery Delivery: Delivery Charge
[2021-10-12] MEDS: OXYTOCIN 30 UNITS/NS 500 ML 30 UNITS/500 ML BAG 125 UNITS IV CONT (14:05)
[2021-10-12] MEDS: BENZOCAINE 20% AER SPR (*SP) 56 GM CAN 1 SPRAY TOPICAL (16:00)
[2021-10-12] MEDS: WITCH HAZEL 40 PADS 1 PAD TOPICAL (16:00)
--- NOTE | 2021-10-12 16:40 | OBPPTRN ---
Patient transferred to post room # 291 via wheelchair.Support person and grandmother both present. Oriented to unit, room, information board, rooming in, admission packet and security measures. No barriers to learning identified at this time. PT received instructions per one to one discussion, mom baby care guide and demonstrationsthis shift. Patient verbalizes understanding.
[2021-10-13] MEDS: ACETAMINOPHEN 325 MG TABLET 650 MG PO ×3 (00:58→17:20)
[2021-10-13] MEDS: IBUPROFEN 600 MG TABLET PO ×3 (04:07→17:19)
[2021-10-13 04:20] VITALS: BP 116/59; PULSE 79; RESP 18; TEMP 36.2; O2SAT 99
[2021-10-13 05:02] LABS: Hematocrit 38.9 % (37.0-47.0); Hemoglobin 12.1 g/dL (12.0-15.0)
--- NOTE | 2021-10-13 07:34 | PM.OBDSVD ---
DS: Admitting Diagnosis Discharge Date 10/13/2021 Admitting Diagnosis OB - DS: Summary OB Procedures : None OB Procedures Intrapartum: Spontaneous Vag Delivery OB Procedures: : None Time Spent with Patient Time attestation: Total time spent providing and/or coordinating discharge services: DS: Data Data Completed and Pending Labs on day of discharge: Labs from last 24 hours 10/13/21 10/12/21 04:10 06:24 Hgb 12.1 Hct 38.9 RPR Non-reactive Discharge Plan Discharge Discharging Clinician: Quincy Fuller Patient Disposition: Home, Self-Care Activity: as tolerated Diet: as tolerated Patient Instructions: Antibiotic Form Stand Alone Forms: General Discharge Information Follow-up/Referrals: Quincy Fuller MD [Physician] - 3 Weeks Discharge Medications: New ibuprofen 600 mg Tablet 600 mg PO Q6H PRN (Reason: Cramping) Qty: 30 0RF No Action No Home Medications Date of admission: 10/12/21 05:37 Primary Care Provider: Alex,Erwin Cochran Admitting Provider: Quincy Fuller Attending physician on admission: Quincy Fuller Condition: Stable
[2021-10-13 08:40] VITALS: BP 115/70; PULSE 85; RESP 18; TEMP 37.1; O2SAT 99
--- NOTE | 2021-10-13 08:41 | WPDANLDPN2 ---
Anes-Prog Note L&D Date/Time: 10/13/21 08:41 Neuro status: Neuro function grossly intact. Vital Signs: Last Vital Signs Temp 36.2 C L 10/13/21 04:20 Pulse 79 10/13/21 04:20 Resp 18 10/13/21 04:20 BP 116/59 L 10/13/21 04:20 Pulse Ox 99 10/13/21 04:20 O2 Del Method Room Air 10/12/21 20:02 Pain score (VAS): 0 I/O: Intake & Output 10/12/21 10/13/21 10/13/21 23:59 07:59 15:59 Intake Total 1240 Output Total 33 Balance 1207 Patient feedback: Patient satisfied with anesthetic care.
[2021-10-13] MEDS: DOCUSATE SODIUM 100 MG CAPSULE PO ×2 (09:31→17:21)
[2021-10-13] MEDS: MULTIVIT/MIN/PREN/FOL AC/IRON TABLET 1 TAB PO (09:33)
[2021-10-13 11:45] VITALS: BP 110/64; PULSE 77; RESP 16; TEMP 36.6; O2SAT 99
[2021-10-13 17:25] VITALS: BP 127/83; PULSE 80; RESP 16; TEMP 36.4; O2SAT 99
[2021-10-13 18:45] VITALS: BP 117/60; PULSE 82; RESP 16; TEMP 36.4
[2021-10-14] MEDS: ACETAMINOPHEN 325 MG TABLET 650 MG PO (04:58)
[2021-10-14] MEDS: IBUPROFEN 600 MG TABLET PO (05:00)
[2021-10-14] MEDS: DOCUSATE SODIUM 100 MG CAPSULE PO (07:50)
[2021-10-14] MEDS: MULTIVIT/MIN/PREN/FOL AC/IRON TABLET 1 TAB PO (07:50)
[2021-10-14 08:50] VITALS: BP 114/75; PULSE 77; RESP 16; TEMP 36.8; O2SAT 98
[2021-10-17 08:06] VITALS: BP 132/78; PULSE 86; RESP 20; TEMP 37.1; O2SAT 99
--- NOTE | 2021-10-17 09:16 | PM.OBDSVD ---
DS: Admitting Diagnosis Discharge Date 10/15/21 Admitting Diagnosis OB - DS: Summary OB Procedures : None OB Procedures Intrapartum: Spontaneous Vag Delivery OB Procedures: : None Time Spent with Patient Time attestation: Total time spent providing and/or coordinating discharge services: Discharge Plan Discharge Discharging Clinician: Quincy Fuller Patient Disposition: Home, Self-Care Activity: as tolerated Diet: as tolerated Discharge Instructions: Education: Mom and Baby Guide Given to: Mother Follow-Up: Call your delivering provider's office for an appointment to be seen in: 3 Weeks Mom and baby should come to the [facility] for the follow-up appointment. Appointment Date/Time: October 15, 2021 at 8:00 am What to expect at your follow-up visit: Blood Pressure Check Physical Assessment Call [phone] if you are unable to keep your appointment time. BREAST CARE: * Wear a snug supportive bra. * For engorgement discomfort: Breast Feeding: * Apply warm moist washcloths * Express milk as needed to relieve engorgement * Wear loose clothing Bottle Feeding: * May apply ice packs * For sore nipples: * Identify correct latch-on * Apply warm moist washcloths before and after nursing * Air dry nipples after nursing * May apply Lansinoh cream to nipples PERINEAL CARE: * Until bleeding stops, use your sherif bottle after urinating * Change your pad frequently throughout the day * You may take sitz baths several times a day (fill your bathtub with warm water and soak for 20 minutes.) Do NOT bathe in the water * No tub baths until seen by your physician - You may shower ACTIVITY: * Rest as much as possible. * Do not exercise or lift anything heavier than your baby (such as laundry or other children.) * Avoid stairs or driving as much as possible. * Do not put anything into the vagina. No douching, tampons, or sexual activity until seen by physician. NOTIFY PHYSICIAN IF YOU HAVE ANY QUESTIONS OR IF ANY OF THE FOLLOWING SYMPTOMS OCCUR: * If your episiotomy or incision becomes red, swollen, or more painful than what you have experienced in the hospital. * If your vaginal bleeding becomes foul smelling. * If your vaginal bleeding becomes more heavy than a period or if your bleeding changes from pink to bright red. However, you may pass an occasional walnut-sized clot once or twice for the first week . * If you experience a sharp, shooting pain in you calves. * If you discover a hard, reddened area on your breast or if you experience flu-like symptoms. DIET: * Eat regular, well-balanced meals. * Drink plenty of fluids daily. If , drink to thirst. Patient Instructions: Antibiotic Form Stand Alone Forms: General Discharge Information Follow-up/Referrals: Quincy Fuller MD [Physician] - 3 Weeks Discharge Medications: New ibuprofen 600 mg Tablet 600 mg PO Q6H PRN (Reason: Cramping) Qty: 30 0RF Date of admission: 10/12/21 05:37 Primary Care Provider: Alex,Erwin Cochran Admitting Provider: Quincy Fuller Attending physician on admission: Quincy Fuller Condition: Stable
== END 2021-10-14 12:30 | disposition home or self-care (01) | DRG 560 ==
LOC: ANHLDR 05:40 → ANHOB2 16:49
PROVIDERS: Admitting Provider Obstetrics & Gynecology; PCP Physician Assistant; Visit Provider Obstetrics & Gynecology
DX: O36.8330 Maternal care for abnormalities of the fetal heart rate or rhythm, third trimester, not applicable or unspecified (principal); Z37.0 Single live birth; Z3A.39 39 weeks gestation of pregnancy
CPT/HCPCS: 36415; 85014; 85018; 85025; 86592; 86850; 86900; 86901; A9270; J2405; J2590; J2795; J7120

== ENCOUNTER 2022-06-16 08:30 | Emergency (ER) | payer OTHER, SELFPAY ==
[2022-06-16 08:37] VITALS: BP 135/59; PULSE 93; RESP 16; TEMP 36.4; O2SAT 100
--- NOTE | 2022-06-16 09:26 | ED.FEMALEGU ---
HPI - Female Genitourinary General Chief complaint: Urogenital-Female Stated complaint: vaginal bleeding/burning Time Seen by Provider: 06/16/22 09:07 Source: patient Mode of arrival: ambulatory Limitations: no limitations History of Present Illness HPI Narrative: This is a 21-year-old female that presents to the emergency department for dysuria noted over the last 2 days. Reports she also started to have vaginal bleeding this morning. She does not usually have periods as she has a Nexplanon. Reports vaginal irritation and itching. Denies fever, flank pain, or vomiting. Related Data Home Medications Medication Instructions Recorded Confirmed etonogestrel 68 mg subdermal 1 implant subdermal ONCE 01/05/22 05/02/22 implant (Nexplanon) Allergies Allergy/AdvReac Type Severity Reaction Status Date / Time No Known Allergies Allergy Verified 06/16/22 08:48 Review of Systems Review of Systems: CONSTITUTIONAL: Denies fever GASTROINTESTINAL: Denies abdominal pain, nausea, vomiting GENITOURINARY: Reports dysuria. Denies hematuria. SKIN: Reports itching. Denies rash All systems reviewed & are unremarkable except as noted in HPI and below PMFSH Past Medical History Medical History Abnormal glucose tolerance in Anxiety Bipolar 1 disorder crippling depression no meds pt refused IBS (irritable bowel syndrome) Insertion of Nexplanon Migraines Uses control Surgical History Surgical History (Updated 05/02/22 @ 16:12 by ROSELINE Vance) History of gynecological procedure (04/30/19) nexplanon insertion History of gynecological procedure (08/14/19) nexplanon removal in office History of gynecological procedure (03/27/19) suction D&C bleeding History of gynecological procedure (01/05/22) nexplanon insertion Hx of removal of cyst cyst removed from wrist No significant past surgical history Family History Family History Father Colon cancer Diabetes mellitus High cholesterol Gum disease Crohn's colitis Alcoholic cirrhosis of liver Grandparent History of blood clots Diabetes mellitus High cholesterol Heart disease Congenital disease of nervous system Gum disease Hypertension Grandparent History of blood clots High cholesterol Heart disease FH: seizures Hypertension Other Congenital disease of nervous system Gum disease Social History Social History (Updated 05/02/22 @ 16:09 by ROSELINE Vance) Years smoked: 3 Smoking status: Former smoker Second hand tobacco smoke exposure: No Additional smoking assessment comments: 1 CIGARETTE/WEEK Alcohol intake: never Substance use: never Substance use type: does not use Living arrangements: other Additional living arrangements comments: single Occupation/Education: occupation Additional occupation/education comments: [employer] Gender identity (if verbalized by the patient): Female Sexual Orientation (if Verbalized by the Patient): Straight or Heterosexual Spiritual care concerns: No Exam Narrative: GENERAL: Well-appearing, well-nourished, and in no acute distress. HEAD: Normocephalic, atraumatic. EYES: EOMI. CHEST: Clear to auscultation. No respiratory distress. No wheezes rales or rhonchi HEART: Regular rate and rhythm. No murmur heard. Normal peripheral pulses. ABDOMEN: Soft, nontender, nondistended, normal active bowel sounds. EXTREMITIES: Normal range of motion. No edema. SKIN: Warm, dry, no rash. NEURO: No focal deficits. Alert and oriented x3. PSYCH: Normal mood and affect PELVIC: Mild redness/irritation of the vulva. Mild white/yellow discharge from the cervix. The cervix appears normal. No bleeding noted. No CMT Course Course Emergency Course: Patient updated on work-up and agrees with plan of care Vital Signs Vital signs: Vital Signs Temperature 97.6 F 06/16/22 08:37 Pulse Rate 93
[2022-06-16 09:29] LABS: Appearance Urine Cloudy (Clear); Bacteria Urine 4+ /hpf; Bilirubin Urine Negative (Negative); Blood Urine 1+ (Negative); Color Urine Yellow (Yellow); Glucose Urine UA Negative (Negative); Ketones Urine Negative (Negative); Leukocyte Esterase Ur 3+ LEU/UL (Negative); Nitrate Urine Positive (Negative); Non Pathogenic Casts 0-2; Protein Urine Negative (Negative); Specific Grav Ur 1.012 (1.001-1.035); Squamous Epithelial Cell Urine Few /hpf (Few); Urobilinogen Urine 0.2 mg/dL (<2.0); pH Urine 6.5 (5.0-9.0)
[2022-06-16 10:34] LABS: Add Urine Microscopic? YES
[2022-06-16] MEDS: FLUCONAZOLE 150 MG TABLET PO (11:00)
[2022-06-16 11:03] VITALS: RESP 16
== END 2022-06-16 11:05 | disposition home or self-care (01) ==
PROVIDERS: Emergency Medicine; Emergency Provider Physician Assistant; PCP Physician Assistant
DX: N30.01 Acute cystitis with hematuria (principal); B37.31 Acute candidiasis of vulva and vagina; F41.9 Anxiety disorder, unspecified; F31.9 Bipolar disorder, unspecified
CPT/HCPCS: 81001; 81025; 87070; 87077; 87086; 87186; 87491; 87591; 87808; 99283; A9270

== ENCOUNTER 2023-02-06 08:36 | Emergency (ER) | payer OTHER, SELFPAY ==
[2023-02-06 08:38] VITALS: BP 132/67; PULSE 76; RESP 20; TEMP 36.2; O2SAT 100
[2023-02-06 08:55] LABS: Basophils Percent Auto 0.4 % (0.2-1.2); Eosinophils Absolute Auto 0.4 K/mm3 (0-0.3); Eosinophils Percent Auto 4.9 % (0-4.4); Hematocrit 45.5 % (37.0-47.0); Hemoglobin 14.5 g/dL (12.0-15.0); Immature Granulocyte Absolute 0.01 K/mm3 (0.00-0.031); Immature Granulocyte Percent A 0.1 % (0-0.5); Lymphocytes Percent Auto 21.6 % (18.3-44.2); Mean Corpuscular HGB Conc 31.9 g/dl (32-36); Mean Corpuscular Hemoglobin 28.4 pg (26-34); Monocytes Absolute Auto 0.5 K/mm3 (0.1-0.6); Monocytes Percent Auto 6.7 % (2.6-8.5); Neutrophils Absolute Auto 4.9 K/mm3 (1.3-6.7); Neutrophils Percent Auto 66.3 % (45.5-73.1); Platelet Count Result 265 k/mm3 (150-375); Red Blood Count 5.11 M/mm3 (4.2-5.4); Red Cell Distribution Width 13.8 % (11.5-14.5); White Blood Count 7.4 K/mm3 (4.5-10.0)
[2023-02-06 09:48] LABS: Appearance Urine Turbid (Clear); Bacteria Urine 4+ /hpf; Bilirubin Urine Negative (Negative); Blood Urine Negative (Negative); Color Urine Yellow (Yellow); Glucose Urine UA Negative (Negative); Ketones Urine Negative (Negative); Leukocyte Esterase Ur 2+ LEU/UL (Negative); Mucus Urine Present /lpf; Nitrate Urine Positive (Negative); Protein Urine Trace mg/dL (Negative); Specific Grav Ur 1.033 (1.001-1.035); Squamous Epithelial Cell Urine Moderate /hpf (Few); WBC Urine 51-100 /hpf; pH Urine 6.5 (5.0-9.0)
[2023-02-06 09:55] LABS: Add Urine Microscopic? YES
[2023-02-06 10:22] VITALS: BP 121/70; PULSE 65; RESP 18; O2SAT 100
[2023-02-06] MEDS: SODIUM CHLORIDE 0.9% IV 1,000 ML 999 ML IV CONT (10:31)
[2023-02-06] MEDS: ONDANSETRON INJ 4 MG/2 ML VIAL IV PUSH (10:33)
[2023-02-06] MEDS: MORPHINE SULFATE (*CRX) 2 MG/ML INJ IV PUSH (10:34)
[2023-02-06 10:45] LABS: Alanine Aminotransferase 13 U/L (6-35); Albumin Level 4.4 g/dL (3.5-5.1); Alkaline Phosphatase 87 U/L (38-126); Anion Gap 5 mmol/L (8-16); Aspartate Amino Transferase 19 U/L (14-36); Bilirubin,Total 0.6 mg/dL (0.2-1.3); Blood Urea Nitrogen 9 mg/dL (7-17); Carbon Dioxide 27 mmol/L (22-30); Chloride 107 mmol/L (98-107); Estimated CRCL calculation 143 ml/min; Estimated Glomerular Filt Rate > 60; Glucose 93 mg/dL (65-110); Lipase 41 U/L (23-300); Potassium 4.2 mmol/L (3.4-5.0); Sodium 139 mmol/L (137-145)
--- NOTE | 2023-02-06 12:34 | ED.GENADULT ---
HPI - General Adult General Chief complaint: Abdominal Pain Stated complaint: abd pain/N/V Time Seen by Provider: 02/06/23 10:01 History of Present Illness HPI narrative: Patient is a 22-year-old female who presents ER with crampy abdominal pain. She is also having burning moving up into her throat. She has had emesis x6. She has increased discomfort in her abdomen on the left side when hitting bumps. No lower abdominal pain. No urinary symptoms. Denies any alleviating factors. Related Data Allergies Allergy/AdvReac Type Severity Reaction Status Date / Time No Known Allergies Allergy Verified 10/30/22 13:48 Review of Systems Review of Systems: All systems reviewed & are unremarkable except as noted in HPI and below Constitutional: Constitutional: Denies chills, Denies fatigue and Denies fever(s) Cardiovascular: Cardiovascular: Denies chest pain, Denies rapid heart rate and Denies radiating jaw, neck or arm pain Respiratory: Respiratory: Denies cough and Denies dyspnea Gastrointestinal: Gastrointestinal: Reports abdominal pain, Denies diarrhea, Reports nausea and Reports vomiting Genitourinary: Genitourinary: Denies hematuria, Denies nocturia, Denies dysuria and Denies flank pain PMFSH Past Medical History Medical History Abnormal glucose tolerance in Anxiety Bipolar 1 disorder crippling depression no meds pt refused IBS (irritable bowel syndrome) Insertion of Nexplanon Migraines Nexplanon removal Uses control Surgical History Surgical History History of gynecological procedure (04/30/19) nexplanon insertion History of gynecological procedure (08/14/19) nexplanon removal in office History of gynecological procedure (03/27/19) suction D&C bleeding History of gynecological procedure (01/05/22) nexplanon insertion Hx of removal of cyst cyst removed from wrist No significant past surgical history Family History Family History Father Colon cancer Diabetes mellitus High cholesterol Gum disease Crohn's colitis Alcoholic cirrhosis of liver Grandparent History of blood clots Diabetes mellitus High cholesterol Heart disease Congenital disease of nervous system Gum disease Hypertension Grandparent History of blood clots High cholesterol Heart disease FH: seizures Hypertension Other Congenital disease of nervous system Gum disease Social History Social History (Updated 05/02/22 @ 16:09 by Yamileth Samayoa [facility]) Years smoked: 3 Smoking status: Former smoker Second hand tobacco smoke exposure: No Additional smoking assessment comments: 1 CIGARETTE/WEEK Alcohol intake: never Substance use: never Substance use type: does not use Living arrangements: other Additional living arrangements comments: single Occupation/Education: occupation Additional occupation/education comments: [employer] Gender identity (if verbalized by the patient): Female Sexual Orientation (if Verbalized by the Patient): Straight or Heterosexual Spiritual care concerns: No Exam Narrative: GENERAL: Well-appearing, well-nourished, and in no acute distress. HEAD: Normocephalic, atraumatic. EYES: PERRL and EOMI. ENT: Mucous membranes moist. CHEST: Clear to auscultation. No respiratory distress. HEART: Regular rate and rhythm. Normal peripheral pulses. ABDOMEN: Soft, nontender, nondistended. No CVA tenderness. EXTREMITIES: Normal range of motion. No edema. SKIN: Warm, dry, no rash. NEURO: Alert and oriented x3. PSYCH: Normal mood and affect. Course Course Emergency Course: Urinalysis poor quality sample and patient is without any urinary symptoms so is not felt that patient is having pyelonephritis. She is without CVA tenderness. Patient has been educated about other lab work is felt appropriate for discharge home. Nicho moran
[2023-02-06 12:45] VITALS: BP 101/54; PULSE 62; RESP 18; O2SAT 100
== END 2023-02-06 12:52 | disposition home or self-care (01) ==
PROVIDERS: Emergency Provider Emergency Medicine
DX: K29.70 Gastritis, unspecified, without bleeding (principal); K58.9 Irritable bowel syndrome, unspecified; Z87.891 Personal history of nicotine dependence
CPT/HCPCS: 36415; 80053; 81001; 81025; 83690; 85025; 87077; 87086; 87186; 96361; 96374; 96375; 99284; J2270; J2405; J7030

== ENCOUNTER 2023-03-15 03:13 | Day surgery (SDC) | payer OTHER, SELFPAY ==
[2023-03-12 09:52] VITALS: BMI 33.3
--- NOTE | 2023-03-12 10:14 | PC.NURSE ---
Report to the Outpatient Waiting Room, entrance under the green pavilion located off [facility], at time ___0900____ on date ___03/15/23____. Planned Procedure Time: ____1100____. Time changes happen often and if your time is changed the preop area will call you the afternoon before. - You and your visitor will be asked to self-screen and do not enter if you have any COVID symptoms. - A mask is optional within the hospital at this time. Patients may have clear liquids (water, carbonated beverages, clear teas, apple juice) until 3 hours prior to surgery with a maximum of 20 ounces. - No food from midnight until time of surgery Take the following medications with a SIP of water the morning of surgery: __drospirenone 3 mg-ethinyl estradiol 0.02 mg tablet____ DO NOT STOP ANY OF YOUR OTHER PRESCRIPTION MEDICATIONS PRIOR TO SURGERY ?EXCEPT THE FOLLOWING Medications to discontinue per physician N/A____ Date to take last dose___N/A Please no make-up, nail citizen of [place], hairspray, perfume, deodorant, or body powder the day of surgery. No jewelry (including any body piercings) or valuables the day of surgery, leave them at home. Please take a shower or bath the night before, or the morning of, surgery with an antibacterial soap. Wear comfortable, loose fitting clothing. Children are encouraged to wear pajamas. - Jewelry must be removed prior to entering the operating room. Rings and piercings that are not removed may be cut off. - The hospital will not accept responsibility for valuables. - Please leave all valuables, including medications, at home the day of surgery. If you are going home after surgery, a licensed driver recruiter must drive you home. - NO public transportation without another adult if you receive anesthesia. - We recommend that an adult stay with you for 24 hours following discharge. - We also recommend that you do not drive, make important decision, drink alcoholic beverages, or take any drugs that were not prescribed by your health care provider for at least 24 hours after your discharge time. Follow any additional instructions given to you from your surgeon. If you or anyone in your household have experienced Covid symptoms in the past week, please notify your surgeon or the nurse liaison at the phone number below for possible testing. Telephone instructions given to __Florence Piña and asked if any additional questions and then verbalized understanding. Patient advised to call surgeon office or pre surgery nurse liaison [phone] if any additional questions.
[2023-03-15] VITALS (11 sets, daily range): BP systolic 96–143; BP diastolic 50–86; PULSE 60–121; RESP 16–20; TEMP 36.6–37.4; O2SAT 96–100
--- NOTE | 2023-03-15 07:57 | PM.IMHP ---
H&P: HPI History of Present Illness Date/Time: 03/15/23 07:57 22-year-old female presents for evaluation regarding pelvic pain. States that she has been having some pelvic pain specifically left lower quadrant for a few months, was seen in the emergency room 2 weeks ago with no significant evaluation in that regard. She does have a gallbladder that needs to be removed due to abdominal pain as well. Ultrasound did not reveal any significant abnormalities, and as next part the evaluation we are going to proceed with laparoscopic evaluation today. Chief Complaint: Pelvic pain Review of Systems Review of Systems: All systems reviewed & are unremarkable except as noted in HPI and below PMFSH Past Medical History Medical History Abnormal glucose tolerance in Anxiety Bipolar 1 disorder crippling depression no meds pt refused IBS (irritable bowel syndrome) Insertion of Nexplanon Migraines Nexplanon removal Uses control Surgical History Surgical History History of gynecological procedure (04/30/19) nexplanon insertion History of gynecological procedure (08/14/19) nexplanon removal in office History of gynecological procedure (03/27/19) suction D&C bleeding History of gynecological procedure (01/05/22) nexplanon insertion Hx of removal of cyst cyst removed from wrist No significant past surgical history Family History Family History Father Colon cancer Diabetes mellitus High cholesterol Gum disease Crohn's colitis Alcoholic cirrhosis of liver Grandparent History of blood clots Diabetes mellitus High cholesterol Heart disease Congenital disease of nervous system Gum disease Hypertension Grandparent History of blood clots High cholesterol Heart disease FH: seizures Hypertension Other Congenital disease of nervous system Gum disease Social History Social History Years smoked: 3 Smoking status: Former smoker Tobacco type: cigarettes Second hand tobacco smoke exposure: No Additional smoking assessment comments: 2 a month when stressed Alcohol intake: never Substance use: never Substance use type: does not use Living arrangements: with family Additional living arrangements comments: single Occupation/Education: occupation Additional occupation/education comments: [employer] Gender identity (if verbalized by the patient): Female Sexual Orientation (if Verbalized by the Patient): Straight or Heterosexual Spiritual care concerns: No Meds Home Medications and Allergies Home Medications Medication Instructions Recorded Confirmed Type drospirenone 3 mg-ethinyl 1 tablet PO DAILY #84 tabs 11/03/22 03/12/23 Rx estradiol 0.02 mg tablet (CARLOS (28)) gabapentin 600 mg tablet 600 mg PO TID 03/12/23 03/12/23 History naproxen 500 mg tablet 500 mg PO BID PRN Pain 03/12/23 03/12/23 History pantoprazole 20 mg tablet,delayed 20 mg PO HS 03/12/23 03/12/23 History release Allergies Allergy/AdvReac Type Severity Reaction Status Date / Time No Known Allergies Allergy Verified 03/12/23 10:04 Exam Const: General: cooperative and healthy appearing Resp: Effort & Inspection: normal respiratory effort Auscultation: clear to auscultation bilaterally Cardio: Rate: regular rate Rhythm: regular rhythm GI: Inspection: normal to inspection Auscultation: normal bowel sounds : External Female Exam: normal external appearance Speculum Exam - Vagina: normal appearance of the vagina Speculum Exam - Cervix: normal appearance of the cervix Bimanual exam- vagina & uterus: other (Mild uterine prolapse) Bimanual Exam- Adnexa, other: tender (Left tender) Assessment and Plan Assessment and plan (1) Left lower quadrant pain: Code(s): R10.32 - Left lower quad
--- NOTE | 2023-03-15 08:00 | WPDHPUPDATE1 ---
History and Physical Update Update Date/Time: 03/15/23 08:00 History and Physical has been reviewed, including an updated exam of the patient. There are NO changes in the patient's condition. Risks, benefits, and alternatives have been discussed and questions answered. Patient agrees to proceed with procedure.
[2023-03-15] MEDS: KETOROLAC 15 MG/ML VIAL (*BKC) IV PUSH (09:20)
[2023-03-15] MEDS: ACETAMINOPHEN 500 MG TABLET 1000 MG PO (09:20)
--- NOTE | 2023-03-15 09:49 | WPDANESEPPF ---
Anes - Initial Pre Proc Eval Procedure: Operation Date: 03/15/23 11:00 Proposed Procedures p Diagnostic Laparoscopy, Possible Lysis of Adhesions - Quincy Fuller MD Date/Time: 03/15/23 09:49 Surgeon: Quincy Fuller MD Pre Op Diagnosis: pelvic pain Patient Data Age: 22 Gender: F Height: 1.65 m Weight: 96.2 kg Last Vital Signs Temp 37.4 C 03/15/23 08:45 Pulse 88 03/15/23 08:45 Resp 16 03/15/23 08:45 BP 125/62 03/15/23 08:45 Pulse Ox 100 03/15/23 08:45 O2 Del Method Room Air 03/15/23 08:45 Allergies Allergy/AdvReac Type Severity Reaction Status Date / Time No Known Allergies Allergy Verified 03/15/23 09:25 Home Medications Medication Instructions Recorded Confirmed Type drospirenone 3 mg-ethinyl 1 tablet PO DAILY #84 tabs 11/03/22 03/15/23 Rx estradiol 0.02 mg tablet (CARLOS (28)) gabapentin 600 mg tablet 600 mg PO TID 03/12/23 03/15/23 History naproxen 500 mg tablet 500 mg PO BID PRN Pain 03/12/23 03/15/23 History pantoprazole 20 mg tablet,delayed 20 mg PO HS 03/12/23 03/15/23 History release Patient hx anesthesia problems: none Family hx anesthesia problems: none Results Review: All pre-operative results and documents have been reviewed as part of the pre-operative evaluation. PMFSH Past Medical History Medical History Abnormal glucose tolerance in Anxiety Bipolar 1 disorder crippling depression no meds pt refused IBS (irritable bowel syndrome) Insertion of Nexplanon Migraines Nexplanon removal Uses control Surgical History Surgical History History of gynecological procedure (04/30/19) nexplanon insertion History of gynecological procedure (08/14/19) nexplanon removal in office History of gynecological procedure (03/27/19) suction D&C bleeding History of gynecological procedure (01/05/22) nexplanon insertion Hx of removal of cyst cyst removed from wrist No significant past surgical history Family History Family History Father Colon cancer Diabetes mellitus High cholesterol Gum disease Crohn's colitis Alcoholic cirrhosis of liver Grandparent History of blood clots Diabetes mellitus High cholesterol Heart disease Congenital disease of nervous system Gum disease Hypertension Grandparent History of blood clots High cholesterol Heart disease FH: seizures Hypertension Other Congenital disease of nervous system Gum disease Social History Social History Years smoked: 3 Smoking status: Former smoker Tobacco type: cigarettes Second hand tobacco smoke exposure: No Additional smoking assessment comments: 2 a month when stressed Alcohol intake: never Substance use: never Substance use type: does not use Living arrangements: with family Additional living arrangements comments: single Occupation/Education: occupation Additional occupation/education comments: [employer] Gender identity (if verbalized by the patient): Female Sexual Orientation (if Verbalized by the Patient): Straight or Heterosexual Spiritual care concerns: No Anes - Eval Final PreProcedure Day of Procedure 03/15/23 09:49 Patient weight: obese Heart: regular rate and rhythm Lungs: clear to auscultation Airway: Mallampati scale class II and other (edentulous) Neurological: alert and oriented Last oral intake: >/= 8 hours ASA classification: III Emergent: no Anesthetic plan: proceed Anesthesia type and monitoring: general ETT and standard monitoring Results Review: All pre-operative results and documents have been reviewed as part of the pre-operative evaluation. Informed Consent: The patient's anesthetic plan and its attendant risks and benefits were discussed with the patient/family/POA. Questions were solicited and ans
--- NOTE | 2023-03-15 11:13 | P.OP_ITS ---
Procedure Note - Detailed Date of Procedure 03/15/23 Pre-op Diagnosis 1. Left lower quadrant pain Post-op Diagnosis Same (2. Endometriosis 3. Adenomyosis) Procedure Performed 1. Laparoscopy 2. Ablation of endometriosis Surgeon Quincy Fuller MD Anesthesia General Findings 1. Enlarged boggy uterus consistent with adenomyosis 2. Left lower quadrant endometriosis Description of Procedure Patient was prepped and draped in the usual manner for this procedure. Cervical instruments were placed for uterine mobility throughout the case. Periumbilical incision was made through which a trocar was placed without difficulty. The revaluation of the pelvis revealed findings of above, significant for likely adenomyosis as well as endometriosis in the left lower quadrant peritoneum. Left lower quadrant incision was then made through which trocars placed and us ing electrocautery the endometriosis in the left lower quadrant was ablated. Gas was let allowed to escape incisions approximated 4-0 Monocryl patient sent cover room in stable condition. Estimated Blood Loss 10 Drains No Packing No Pathology Yes Complications No immediate complications Condition Stable Disposition PACU [facility] Billing Surgery - Charge Forward: Surgery Billing
[2023-03-15] MEDS: LACTATED RINGERS 1,000 ML 30 ML IV CONT ×2 (11:28)
[2023-03-15] MEDS: fentaNYL CITRATE INJ (*CRX) 100 MCG/2 ML VIAL 25 MCG IV PUSH ×6 (11:31→12:03)
[2023-03-15] MEDS: SCOPOLAMINE 1.5 MG PATCH TRANSDERM (12:22)
[2023-03-15] MEDS: ONDANSETRON INJ 4 MG/2 ML VIAL IV PUSH (13:16)
[2023-03-15] MEDS: oxyCODONE HCL (*CRX) 5 MG TAB IR PO (13:52)
== END 2023-03-15 14:34 | disposition home or self-care (01) ==
PROVIDERS: Visit Provider Obstetrics & Gynecology
PROC: (CPT 49320; principal; 2023-03-15 11:00)
DX: N80.399 Endometriosis of the pelvic peritoneum, other specified sites, unspecified depth (principal); N80.03 Adenomyosis of the uterus; Z87.891 Personal history of nicotine dependence; E66.9 Obesity, unspecified; Z68.35 Body mass index [BMI] 35.0-35.9, adult
CPT/HCPCS: 58662; A9270; J1100; J1200; J1885; J2250; J2405; J2704; J3010; J7120

== ENCOUNTER 2023-03-19 07:55 | Emergency (ER) | payer OTHER, SELFPAY ==
--- NOTE | 2023-03-19 08:29 | ED.GENADULT ---
HPI - General Adult General Chief complaint: Recheck/Abnormal Lab/Rx Stated complaint: post op problems Time Seen by Provider: 03/19/23 08:21 History of Present Illness HPI narrative: Patient is a 22-year-old female who presents ER for evaluation of a postoperative wound. Last week patient has an exploratory laparoscopy by Dr. Fuller for adenomyosis and endometriosis. Patient has been recovering wall. Her blue came off from a port site in the left lower quadrant last night. She has been leaking some clear yellow fluid since then. No pain. No redness of the skin. No additional concerns. Related Data Home Medications Medication Instructions Recorded Confirmed gabapentin 600 mg tablet 600 mg PO TID 03/12/23 03/15/23 naproxen 500 mg tablet 500 mg PO BID PRN Pain 03/12/23 03/15/23 pantoprazole 20 mg tablet,delayed 20 mg PO HS 03/12/23 03/15/23 release Allergies Allergy/AdvReac Type Severity Reaction Status Date / Time No Known Allergies Allergy Verified 03/15/23 09:25 Review of Systems Review of Systems: All systems reviewed & are unremarkable except as noted in HPI and below Constitutional: Constitutional: Reports no additional constitutional complaints Gastrointestinal: Gastrointestinal: Reports no additional gastrointestinal complaints Genitourinary: Genitourinary: Reports no additional female genitourinary complaints Integumentary/Breasts: Skin/Breast: Denies erythema, Denies rash and Denies skin ulcer Comments: Wound dehiscence PMFSH Past Medical History Medical History Abnormal glucose tolerance in Anxiety Bipolar 1 disorder crippling depression no meds pt refused IBS (irritable bowel syndrome) Insertion of Nexplanon Migraines Nexplanon removal Uses control Surgical History Surgical History (Updated 03/19/23 @ 08:32 by Oleksandr Abarca MD) History of gynecological procedure (04/30/19) nexplanon insertion History of gynecological procedure (08/14/19) nexplanon removal in office History of gynecological procedure (03/27/19) suction D&C bleeding History of gynecological procedure (01/05/22) nexplanon insertion History of laparoscopy Hx of removal of cyst cyst removed from wrist Family History Family History Father Colon cancer Diabetes mellitus High cholesterol Gum disease Crohn's colitis Alcoholic cirrhosis of liver Grandparent History of blood clots Diabetes mellitus High cholesterol Heart disease Congenital disease of nervous system Gum disease Hypertension Grandparent History of blood clots High cholesterol Heart disease FH: seizures Hypertension Other Congenital disease of nervous system Gum disease Social History Social History Years smoked: 3 Smoking status: Former smoker Tobacco type: cigarettes Second hand tobacco smoke exposure: No Additional smoking assessment comments: 2 a month when stressed Alcohol intake: never Substance use: never Substance use type: does not use Living arrangements: with family Additional living arrangements comments: single Occupation/Education: occupation Additional occupation/education comments: [employer] Gender identity (if verbalized by the patient): Female Sexual Orientation (if Verbalized by the Patient): Straight or Heterosexual Spiritual care concerns: No Exam Narrative: GENERAL: Well-appearing, well-nourished, and in no acute distress. HEAD: Normocephalic, atraumatic. ABDOMEN: Soft, nontender, nondistended. well-healed port site of the umbilicus. Port site in left lower quadrant with normal approximation however with palpation there is about 1 mm of wound dehiscence over a 5 mm distance. EXTREMITIES: Normal range of motion. No edema. SKIN: Warm, dry, no rash. NEURO: Alert and oriented x3. PSYCH: Normal mood and af
== END 2023-03-19 08:53 | disposition home or self-care (01) ==
PROVIDERS: Emergency Provider Emergency Medicine
DX: T81.31XA Disruption of external operation (surgical) wound, not elsewhere classified, initial encounter (principal)
CPT/HCPCS: 99281

== ENCOUNTER 2023-04-24 09:05 | Emergency (ER) | payer OTHER, SELFPAY ==
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
[2023-04-24 09:09] VITALS: BP 133/67; PULSE 70; RESP 18; TEMP 36.5; O2SAT 100
[2023-04-24 10:04] VITALS: BP 106/65; PULSE 78; RESP 16; TEMP 36.7; O2SAT 98
[2023-04-24 10:30] VITALS: BP 103/77; PULSE 74; RESP 16; O2SAT 98
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
[2023-04-24] MEDS: ACETAMINOPHEN 325 MG TABLET 650 MG PO (10:41)
[2023-04-24] MEDS: IBUPROFEN 400 MG TABLET 800 MG PO (10:42)
[2023-04-24 10:46] VITALS: BP 120/68; PULSE 72; RESP 16; TEMP 36.6; O2SAT 100
[2023-04-24 11:23] VITALS: BP 119/66; PULSE 70; RESP 16; TEMP 36.6; O2SAT 98
== END 2023-04-24 11:28 | disposition home or self-care (01) ==
PROVIDERS: Emergency Provider Physician Assistant
DX: S29.9XXA Unspecified injury of thorax, initial encounter (principal); K58.9 Irritable bowel syndrome, unspecified; F17.210 Nicotine dependence, cigarettes, uncomplicated; V49.50XA Passenger injured in collision with unspecified motor vehicles in traffic accident, initial encounter
CPT/HCPCS: 71101; 99283; A9270